=== PATIENT | male | born 1945 | race Caucasian/White ===

== ENCOUNTER → 2016-05-09 | Outpatient (CLI) | payer OTHER ==
[~2016-05-09] MED LIST: LIDOCAINE 1% 30 ML SDV ONE; NA BICARBONATE 50 MEQ/50 ML VIAL ONE
== END ==
LOC: FIMAGING 08:44
PROVIDERS: ATTEND Internal Medicine Pulmonary Disease
PROC: 0W9B3ZX Drainage of Left Pleural Cavity, Percutaneous Approach, Diagnostic (ICD-10-PCS; principal; 2016-05-09)
DX: J90 Pleural effusion, not elsewhere classified (principal); Z77.090 Contact with and (suspected) exposure to asbestos

== ENCOUNTER 2018-01-16 13:50 | Inpatient (IN) | payer OTHER ==
[2018-01-16] MEDS ORDERED: fentaNYL 100 MCG/2 ML INJ IVP ONE (15:48)
[2018-01-16] MEDS ORDERED: ONDANSETRON 4 MG/2 ML VIAL IVP ONE (15:48)
[2018-01-16] MEDS ORDERED: NS 1,000 ML IV ONE (15:48)
[2018-01-16 15:59] LABS: PLATELET COUNT 195 10^3/uL (150-400)
--- NOTE | 2018-01-16 16:17 | EDPHY ---
H & P Time Seen by Provider: 01/16/18 16:09 HPI/ROS: HPI Right-sided flank pain. 72-year-old male by private vehicle with his . This patient has a history of kidney stones. He presents to the emergency department with right-sided flank pain with radiation to the right lower quadrant of his abdomen, worsening since this morning. He states that this pain is similar to prior pain he has had with his kidney stones. He denies any testicular pain. He has had associated nausea but no vomiting. He was given IV fentanyl in triage and is feeling better at this time. ROS: Constitutional: No fever, no chills. No weakness. Eyes: No discharge. No changes in vision. ENT: No sore throat. No nasal congestion or rhinorrhea. Respiratory: No cough. No shortness of breath. Cardiac: No chest pain, no palpitations. Gastrointestinal: As above, no vomiting, no diarrhea. Genitourinary: No hematuria. No dysuria or increased frequency with urination. Musculoskeletal: As above. No neck pain. No myalgias or arthralgias. Skin: No rashes. Neurological: No headache. No focal weakness or altered sensation. Past medical history: Kidney stones, CHF, right shoulder surgery, right knee surgery. Social history: Nonsmoker. Here with his . Denies alcohol Physical Exam: General Appearance: Alert, no distress, currently he is comfortable after receiving IV fentanyl from triage. This patient is responding to questions appropriately and in full sentences. This patient appears well-hydrated and well-nourished. Eyes: Pupils are small, equal and round no pallor or injection. No lid edema, erythema or injection. Respiratory: There are no retractions, lungs are clear to auscultation with good air movement bilaterally. Cardiovascular: Regular rate and rhythm. No murmur. Gastrointestinal: Abdomen is distended, otherwise soft with vague and mild tenderness on palpation of the right lower quadrant, no masses, bowel sounds normal. No focal tenderness at McBurney's point. No Manzano sign. Neurological: Motor sensory function is grossly intact. Cranial nerves are normal. Gait is normal. Skin: Warm and dry, no rashes. Musculoskeletal: Vague and mild right-sided CVA tenderness on palpation. No left-sided CVA tenderness on palpation. Extremities are symmetrical. All joints range without pain or impingement. Psychiatric: No agitation. No depression. Database: EKG: Imaging: CT scan of abdomen and pelvis without contrast: Significant for a 3 mm mid right ureteral stone at the L4 level. Mild hydronephrosis is noted. Bilateral small a kidney stones noted. Results discussed with staff radiologist Dr. Emmanuel Sanches. Procedures: Emergency department course: Triage vital signs reviewed, mild hypertension, otherwise normal. The patient is afebrile. IV was placed in triage. He was started on IV normal saline with 500 cc to 1 L to be given over an hour. He was given 50 mcg of IV fentanyl and 4 mg of IV Zofran in triage. Currently after my evaluation he is comfortable. CT imaging pending. 5:35 p.m., the patient was re-evaluated. His pain is currently well controlled. Results of his CT scan and diagnosis discussed with him and his . I discussed my concern about his elevated creatinine which is 1.6 today. His last creatinine was 0.9. I explained that I wanted to admit him to the hospital for IV hydration, urology consultation and pain control and have his creatinine rechecked again in the morning. I also explained that we would be able to given pain medication IV. The patient and his for not sure if they want to be admitted at this time. From my understanding this has to do with insurance reasons. They are going to talk about it and let me know what they wish to do. In my professional opinion they do understand the seriousness of his condition and the potential adverse impact on his kidneys. 6:00 p.m., the patient was re-evaluated. He and his non to do except admission. Hospitalist paged. 6:15 p.m., discussed case with on-call hospitalist Dr. Fan. He accepts this patient for admission. Urology consultation deferred to hospitalist service. The patient's remaining emergency department course under my care has been uneventful. He was admitted in stable condition to the hospitalist service. Differential Diagnosis: The differential diagnosis on this patient includes but is not limited to kidney stone on right side. Aortic dissection, colitis, appendicitis unlikely. This represents a partial list of diagnoses considered. These considerations are based on history, physical exam, past history, reassessment and diagnostic testing. Smoking Status: Former smoker Constitutional: Initial Vital Signs Temperature (C) 36.9 C 12/01/18 14:05 Heart Rate 76 01/16/18 14:05 Respiratory Rate 18 01/16/18 14:05 Blood Pressure 141/87 H 01/16/18 14:05 O2 Sat (%) 95 01/16/18 14:05 O2 Delivery Mode Simple Mask O2 (L/minute) 8 Allergies/Adverse Reactions: No Known Allergies Allergy (Verified 01/16/18 14:04) Home Medications: Medication Instructions Recorded [place]-3 Fatty Acids [Fish Oil 1000 1,000 mg PO DAILY 10/31/15 mg (*)] Tamsulosin HCl [Flomax 0.4 MG (*)] 0.4 mg PO HS 10/31/15 traZODone [traZODONE 100MG (*)] 100 mg PO HS 10/31/15 Herbals/Supplements -Info Only 1 ea PO DAILY 01/24/16 Naproxen Sodium [Aleve 220 MG (*)] 220 mg PO TID #0 10/16/17 Aspirin [Aspirin 81mg (*)] 81 mg PO DAILY 01/16/18 Sennosides [Senna Lax] 8.6 mg PO HS 01/16/18 amLODIPine BESYLATE [Norvasc 2.5 5 mg PO DAILY@1700 01/16/18 mg (*)] Medical Decision Making - Diagnostics Imaging Results: Imaging Impressions Fluoroscopy 01/17/18 12:30 Impression: Fluoroscopy provided for deployment of right internalized ureteral stent. - Data Points Laboratory Results: Laboratory Results 01/16/18 15:50 01/17/18 05:12 01/17/18 05:12 Sodium 142 mEq/L mEq/L (135-145) Potassium 4.2 mEq/L mEq/L (3.3-5.0) Chloride 112 mEq/L H mEq/L (97-110) Carbon Dioxide 23 mEq/l mEq/l (22-31) Anion Gap 7 mEq/L mEq/L (6-14) BUN 23 mg/dL mg/dL (7-23) Creatinine 1.8 mg/dL H mg/dL (0.7-1.3) Estimated GFR 37 Glucose 106 mg/dL H mg/dL (70-100) Calcium 8.9 mg/dL mg/dL (8.5-10.4) Medications Given: Amlodipine Besylate (Norvasc) 5 mg PO DAILY@1700 SIL Stop: 07/16/18 16:59 Last Admin: 01/17/18 17:04 Dose: 5 mg Aspirin (Aspirin) 81 mg PO DAILY SIL Stop: 07/16/18 08:59 Last Admin: 01/17/18 09:37 Dose: 81 mg Hydromorphone HCl (Dilaudid) 0.4 mg IVP Q1 PRN PRN Reason: Pain, Severe Unable to Take PO Stop: 01/26/18 20:31 Last Admin: 01/16/18 22:31 Dose: 0.4 mg Sodium Chloride (Ns) 1,000 mls @ 150 mls/hr IV CONT SIL Stop: 07/15/18 19:29 Last Admin: 01/17/18 03:06 Dose: 1,000 mls Oxycodone HCl (Oxycodone Ir) 5 - 10 mg PO Q3HRS PRN PRN Reason: Pain, breakthrough Stop: 01/26/18 19:18 Last Admin: 01/17/18 17:03 Dose: 10 mg Tamsulosin HCl (Flomax) 0.4 mg PO BID SIL Stop: 07/15/18 20:59 Last Admin: 01/17/18 09:37 Dose: 0.4 mg Trazodone HCl (Trazodone) 100 mg PO HS SIL Stop: 07/15/18 20:59 Last Admin: 01/16/18 23:48 Dose: 100 mg Discontinued Medications Fentanyl (Sublimaze) 50 mcg IVP EDNOW ONE Stop: 01/16/18 15:49 Last Admin: 01/16/18 15:56 Dose: 50 mcg Hydromorphone HCl (Dilaudid) 0.5 mg IVP EDNOW ONE Stop: 01/16/18 16:55 Last Admin: 01/16/18 16:57 Dose: 0.5 mg Hydromorphone HCl (Dilaudid) 0.4 mg IVP Q4HRS PRN PRN Reason: Pain, Severe Unable to Take PO Stop: 01/26/18 20:31 Last Admin: 01/16/18 20:49 Dose: 0.4 mg Sodium Chloride (Ns) 1,000 mls @ 0 mls/hr IV ONCE ONE; Wide Open PRN Reason: Protocol Stop: 01/16/18 15:49 Last Admin: 01/16/18 15:56 Dose: 1,000 mls Cefazolin Sodium 2 gm/ Sodium (Chloride) 100 mls @ 200 mls/hr IV EDNOW ONE PRN Reason: Protocol Stop: 01/17/18 13:44 Last Admin: 01/17/18 13:42 Dose: 100 mls Iopamidol (Isovue-[id number]) Confirm Administered Dose 150 ml .ROUTE .STK-MED ONE Stop: 01/17/18 13:33 Last Admin: 01/17/18 14:19 Dose: Not Given Ondansetron HCl (Zofran) 4 mg IVP EDNOW ONE Stop: 01/16/18 15:49 Last Admin: 01/16/18 15:56 Dose: 4 mg Tamsulosin HCl (Flomax) 0.4 mg PO EDNOW ONE Stop: 01/16/18 17:27 Last Admin: 01/16/18 17:40 Dose: 0.4 mg Departure - Departure Disposition: [facility] Acute Clinical Impression: Kidney stone on right side, Renal insufficiency
[2018-01-16] MEDS ORDERED: HYDROmorphONE/DILAUDID 1 MG/ML INJ IVP ONE (16:54)
[2018-01-16] MEDS ORDERED: HYDROmorphONE/DILAUDID 1 MG/ML INJ ONE (16:56)
[2018-01-16] MEDS ORDERED: TAMSULOSIN HCL 0.4 MG CAP PO ONE (17:26)
[2018-01-16] MEDS ORDERED: OXYCODONE/APAP 5/325 TAB PO PRN (19:19)
[2018-01-16] MEDS ORDERED: ACETAMINOPHEN 325 MG TAB PO PRN (19:19)
[2018-01-16] MEDS ORDERED: ONDANSETRON DISINTEGRATING 4 MG TAB PO PRN (19:19)
[2018-01-16] MEDS ORDERED: ONDANSETRON 4 MG/2 ML VIAL IVP PRN (19:19)
--- NOTE | 2018-01-16 20:31 | GHP ---
DATE OF ADMISSION: 01/16/2018 CHIEF COMPLAINT: Right flank pain. HISTORY OF PRESENT ILLNESS: This is a 72-year-old male with a history of previous kidney stones. He was in his usual state of health until yesterday, when he developed some right flank pain radiating to the groin. This is similar to previous kidney stones. He did have an episode of hematuria a coup le weeks ago. He is not having any fevers or chills. No nausea, vomiting. REVIEW OF SYSTEMS: A 10-point review of systems was obtained and other than stated negative. PAST MEDICAL HISTORY: 1. Previous nephrolithiasis. 2. Obstructive sleep apnea. 3. Gout. 4. 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 MEDICATIONS: Reviewed. SOCIAL HISTORY: No smoking. Occasional alcohol. FAMILY HISTORY: There is history of kidney stones. PHYSICAL EXAMINATION: VITAL SIGNS: Afebrile. Blood pressure is 139/82, heart rate 56, oxygen satur ation 97% on 2 L. GENERAL: Patient is well developed, in no apparent distress. HEENT: Nonicteric sclerae. Extraocular movements intact. Moist mucous membranes. NECK: Supple. No thyromegaly. EDY NGS: Good effort. Clear to auscultation bilaterally. CARDIOVASCULAR: Regular rate and rhythm. No murmurs, rubs, or gallops. ABDOMEN: Obese, soft, nontender, nondistended. No hepatosplenomegaly. EXTREMITIES: No clubbing, cyanosis, or edema. BACK: No CVA tenderness. LABS: White blood cell count slightly elevated at 10. Creatinine elevated at 1.6. CT scan shows a 3 mm mid right ureteral calculus with mild hydronephrosis on the right and bilateral nephrolithiasis. ASSESSMENT: This is a 72-year-old male presenting with nephrolithiasis and acute renal failure. PLAN: 1. Nephrolithiasis. This should pass on its own. Will continue Flomax. 2. Acute renal failure. There is only mild hydronephrosis. It is probably related to dehydration. Will give IV fluids and monitor creatinine. 3. Disposition. Could probably go home tomorrow if his creatinine is improved and his pain is well controlled. /[id number]/MODL
[2018-01-16] MEDS ORDERED: HYDROmorphONE/DILAUDID 1 MG/ML INJ IVP PRN ×2 (20:32→22:19)
[2018-01-16] MEDS: oxyCODONE IR 5 MG TAB PO PRN ×2 (20:49→23:48)
[2018-01-16] MEDS: NS 1,000 ML IV SCH (20:52)
[2018-01-16] MEDS: traZODone 100 MG TAB PO SCH (23:48)
[2018-01-17] MEDS: TAMSULOSIN HCL 0.4 MG CAP PO SCH ×3 (00:34→20:03)
[2018-01-17] MEDS: oxyCODONE IR 5 MG TAB PO PRN ×4 (03:05→17:03)
[2018-01-17] MEDS: NS 1,000 ML IV SCH (03:06)
[2018-01-17] MEDS: ASPIRIN 81 MG CHEWABLE TAB PO SCH (09:37)
[2018-01-17] MEDS ORDERED: CEFAZOLIN 2 GM/DEXTROSE/100 ML BAG IV ONE (12:54)
--- NOTE | 2018-01-17 12:55 | HOSPPROG ---
Hospitalist Progress Note Assessment/Plan: Nephrolithiasis - Presents with R sided flank pain, hx of Nephrolithiasis requiring urological intervention previously - CT scan shows 3 mm mid R ureteral calculus with mild hydronephrosis on the R and b/l Nephrolithiasis - UA negative for infection on admission, +1 Blood - Cr elevated to 1.6 on admission, 1.8 this AM despite IVF - Urology consulted for further evaluation and management, discussed with Dr. Suarez this AM who plans to remove stone this afternoon - Pain/nausea control PRN - Continue IVF, Flomax ALLEN - Cr elevated to 1.6 on admission, 1.8 this AM despite IVF (baseline ~1) - Management of Nephrolithiasis as above - Continue to monitor BMP, I/O, avoid nephrotoxic agents - Continue IVF FEN: IVF Code: FULL Dispo: Pending clinical course Subjective: Patient reports increasing R flank pain this morning Objective: Vital Signs Temp Pulse Resp BP Pulse Ox 36.6 C 61 14 131/70 H 96 01/17/18 12:33 01/17/18 12:33 01/17/18 12:33 01/17/18 12:33 01/17/18 12:33 Laboratory Results 01/17/18 05:12 01/16/18 01/17/18 01/18/18 05:59 05:59 05:59 Intake Total 3111 Output Total 250 275 Balance 2861 -275 - Physical Exam Constitutional: uncomfortable Eyes: PERRL Ears, Nose, Mouth, Throat: moist mucous membranes Cardiovascular: regular rate and rhythym Respiratory: no respiratory distress Gastrointestinal: soft, non-tender abdomen Genitourinary: no bladder tenderness Skin: warm Musculoskeletal: full muscle strength Neurologic: AAOx3 Psychiatric: interacting appropriately ICD10 Worksheet Patient Problems: Problems Problem Status Onset Kidney stone on right side Acute Renal insufficiency Acute Primary localized osteoarthritis of right knee Acute
[2018-01-17] MEDS ORDERED: ceFAZolin 2 GM in NS 100 ML IV ONE (13:15)
[2018-01-17] MEDS ORDERED: ALBUTEROL 3 ML DEYVIAL IH PRN (13:18)
[2018-01-17] MEDS ORDERED: HYDROCODONE/APAP 5/325 TAB PO PRN (13:18)
[2018-01-17] MEDS ORDERED: HYDROmorphONE/DILAUDID 2 MG/ML INJ IVP PRN (13:18)
[2018-01-17] MEDS ORDERED: DEXAMETHASONE 4 MG/ML VIAL IVP PRN (13:18)
[2018-01-17] MEDS ORDERED: NS 500 ML IV PRN (13:18)
[2018-01-17] MEDS ORDERED: fentaNYL 100 MCG/2 ML INJ IVP PRN (13:18)
[2018-01-17] MEDS ORDERED: ONDANSETRON 4 MG/2 ML VIAL IVP PRN (13:18)
[2018-01-17] MEDS ORDERED: oxyCODONE IR 5 MG TAB PO PRN (13:18)
[2018-01-17] MEDS ORDERED: NALOXONE HCL 0.4 MG/ML INJ IVP PRN (13:18)
--- NOTE | 2018-01-17 13:18 | PDANEPAE ---
ANE History of Present Illness here for ureteroscopy ANE Past Medical History - Cardiovascular History Hx Hypertension: No Hx Arrhythmias: No Hx Chest Pain: No Hx Coronary Artery / Peripheral Vascular Disease: No Hx CHF / Valvular Disease: No Hx Palpitations: No Cardiovascular History Comment: PREV RX FOR HTN NO RX SINCE 2013 - Pulmonary History Hx COPD: No Hx Asthma/Reactive Airway Disease: No Hx Recent Upper Respiratory Infection: No Hx Oxygen in Use at Home: No Hx Sleep Apnea: Yes Sleep Apnea Screening Result - Last Documented: Positive Pulmonary History Comment: TIERA -C-PAP INSTRUCTED TO BRING WITH DOS. PNEUMONIA. PULM FIBROSIS. PULMONARY MD [facility] - Neurologic History Hx Cerebrovascular Accident: No Hx Seizures: No Hx Dementia: No - Endocrine History Hx Diabetes: No - Renal History Hx Renal Disorders: Yes Renal History Comment: NOCTURIA - Liver History Hx Hepatic Disorders: No - Neurological & Psychiatric Hx Hx Neurological and Psychiatric Disorders: No - Cancer History Hx Cancer: No - Congenital Disorder History Hx Congenital Disorders: No - GI History Hx Gastrointestinal Disorders: No - Other Health History Other Health History: LOWER BACK DISCOMFORT INTERMITTENT KAREN. OSTEOARTHRITIS. FULL DENTURES - Chronic Pain History Chronic Pain: Yes (RT SHLDR) - Surgical History Prior Surgeries: RT TOTAL KNEE 01/2016. REFLUX VALVE NONE EXISTENT RECONSTRUCTED . RT KNEE SCOPE. SEPTOPLASTY. RT ANKLE RECONSTRUCTION. TONSILLECTOMY ANE Review of Systems Review of systems is: negative Review of Systems: - Exercise capacity Exercise capacity: >=4 METS ANE Patient History - Allergies Allergies/Adverse Reactions: No Known Allergies Allergy (Verified 01/16/18 14:04) - Home Medications Home medications: home medication list seen and reviewed Home Medications: [place]-3 Fatty Acids [Fish Oil 1000 mg (*)] 1,000 mg PO DAILY 10/31/15 [Last Taken 01/16/18] Tamsulosin HCl [Flomax 0.4 MG (*)] 0.4 mg PO HS 10/31/15 [Last Taken 01/15/18] traZODone [traZODONE 100MG (*)] 100 mg PO HS 10/31/15 [Last Taken 01/15/18] Herbals/Supplements -Info Only 1 ea PO DAILY 01/24/16 [Last Taken 1 Week Ago ~] Naproxen Sodium [Aleve 220 MG (*)] 220 mg PO TID #0 10/16/17 [Last Taken 08:00] Aspirin [Aspirin 81mg (*)] 81 mg PO DAILY 01/16/18 [Last Taken 01/16/18 08:00] Sennosides [Senna Lax] 8.6 mg PO HS 01/16/18 [Last Taken 01/15/18] amLODIPine BESYLATE [Norvasc 2.5 mg (*)] 5 mg PO DAILY@1700 01/16/18 [Last Taken 01/15/18] - NPO status NPO Status: no food or drink >8 hours NPO Since - Liquids (Date): 01/16/18 NPO Since - Liquids (Time): 20:00 NPO Since - Solids (Date): 01/16/18 NPO Since - Solids (Time): 20:00 - Smoking Hx Smoking Status: Former smoker ANE Labs/Vital Signs - Labs Result Diagrams: 01/16/18 15:50 01/17/18 05:12 - Vital Signs Vital Signs: reviewed preoperatively; see RN documention for details Blood Pressure: 131/70 Heart Rate: 61 Respiratory Rate: 14 O2 Sat (%): 96 Height: 185.42 cm Weight: 117.027 kg ANE Physical Exam - Airway Neck exam: FROM Mallampati Score: Class 1 - Pulmonary Pulmonary: no respiratory distress - Cardiovascular Cardiovascular: regular rate and rhythym - ASA Status ASA Status: II ANE Anesthesia Plan Anesthesia Plan: GA w LMA
--- NOTE | 2018-01-17 13:22 | PDGENHP ---
History and Physical - Chief Complaint right flank pain - History of Present Illness 72 y/o WM with h/o stones admitted with right flank pain and rising creatinine. Found to have 3mm right mid ureteral stone and non obstructing renal stones. no fevers. + hematuria earlier this week. Denies N/V. +h/o of stones with intervention in [place] in the past. History Information - Allergies/Home Medication List Allergies/Adverse Reactions: No Known Allergies Allergy (Verified 01/16/18 14:04) Home Medications: [place]-3 Fatty Acids [Fish Oil 1000 mg (*)] 1,000 mg PO DAILY 10/31/15 [Last Taken 01/16/18] Tamsulosin HCl [Flomax 0.4 MG (*)] 0.4 mg PO HS 10/31/15 [Last Taken 01/15/18] traZODone [traZODONE 100MG (*)] 100 mg PO HS 10/31/15 [Last Taken 01/15/18] Herbals/Supplements -Info Only 1 ea PO DAILY 01/24/16 [Last Taken 1 Week Ago ~] Naproxen Sodium [Aleve 220 MG (*)] 220 mg PO TID #0 10/16/17 [Last Taken 08:00] Aspirin [Aspirin 81mg (*)] 81 mg PO DAILY 01/16/18 [Last Taken 01/16/18 08:00] Sennosides [Senna Lax] 8.6 mg PO HS 01/16/18 [Last Taken 01/15/18] amLODIPine BESYLATE [Norvasc 2.5 mg (*)] 5 mg PO DAILY@1700 01/16/18 [Last Taken 01/15/18] I have personally reviewed and updated: family history, medical history, social history, surgical history - Social History Smoking Status: Former smoker Review of Systems Review of Systems: ROS: 10pt was reviewed & negative except for what was stated in HPI & below Physical Exam Physical Exam: Temp Pulse Resp BP Pulse Ox 36.6 C 61 14 131/70 H 96 01/17/18 12:33 01/17/18 13:17 01/17/18 13:17 01/17/18 13:17 01/17/18 13:17 O2 (L/minute) 2 Constitutional: no apparent distress Eyes: anicteric sclera Ears, Nose, Mouth, Throat: hearing normal Cardiovascular: regular rate and rhythym Respiratory: no respiratory distress Gastrointestinal: soft, non-tender abdomen Genitourinary: no bladder fullness Skin: warm, normal color Psychiatric: interacting appropriately Lab Data & Imaging Review 01/16/18 15:50 01/17/18 05:12 WBC 10.88 10^3/uL (3.80-9.50) H 01/16/18 15:50 RBC 5.29 10^6/uL (4.40-6.38) 01/16/18 15:50 Hgb 16.1 g/dL (13.7-17.5) 01/16/18 15:50 Hct 47.1 % (40.0-51.0) 01/16/18 15:50 MCV 89.0 fL (81.5-99.8) 01/16/18 15:50 MCH 30.4 pg (27.9-34.1) 01/16/18 15:50 MCHC 34.2 g/dL (32.4-36.7) 01/16/18 15:50 RDW 13.2 % (11.5-15.2) 01/16/18 15:50 Plt Count 195 10^3/uL (150-400) 01/16/18 15:50 MPV 9.1 fL (8.7-11.7) 01/16/18 15:50 Neut % (Auto) 75.1 % (39.3-74.2) H 01/16/18 15:50 Lymph % (Auto) 11.6 % (15.0-45.0) L 01/16/18 15:50 [place] % (Auto) 9.6 % (4.5-13.0) 01/16/18 15:50 Eos % (Auto) 2.7 % (0.6-7.6) 01/16/18 15:50 Baso % (Auto) 0.6 % (0.3-1.7) 01/16/18 15:50 Nucleat RBC Rel Count 0.0 % (0.0-0.2) 01/16/18 15:50 Absolute Neuts (auto) 8.19 10^3/uL (1.70-6.50) H 01/16/18 15:50 Absolute Lymphs (auto) 1.26 10^3/uL (1.00-3.00) 01/16/18 15:50 Absolute Monos (auto) 1.04 10^3/uL (0.30-0.80) H 01/16/18 15:50 Absolute Eos (auto) 0.29 10^3/uL (0.03-0.40) 01/16/18 15:50 Absolute Basos (auto) 0.06 10^3/uL (0.02-0.10) 01/16/18 15:50 Absolute Nucleated RBC 0.00 10^3/uL (0-0.01) 01/16/18 15:50 Immature Gran % 0.4 % (0.0-1.1) 01/16/18 15:50 Immature Gran # 0.04 10^3/uL (0.00-0.10) 01/16/18 15:50 Sodium 142 mEq/L (135-145) 01/17/18 05:12 Potassium 4.2 mEq/L (3.3-5.0) 01/17/18 05:12 Chloride 112 mEq/L (97-110) H 01/17/18 05:12 Carbon Dioxide 23 mEq/l (22-31) 01/17/18 05:12 Anion Gap 7 mEq/L (6-14) 01/17/18 05:12 BUN 23 mg/dL (7-23) 01/17/18 05:12 Creatinine 1.8 mg/dL (0.7-1.3) H 01/17/18 05:12 Estimated GFR 37 01/17/18 05:12 Glucose 106 mg/dL (70-100) H 01/17/18 05:12 Calcium 8.9 mg/dL (8.5-10.4) 01/17/18 05:12 Urine Color YELLOW 01/16/18 15:50 Urine Appearance MODERATELY TURBID 01/16/18 15:50 Urine pH 5.0 (5.0-7.5) 01/16/18 15:50 Ur Specific [place] 1.021 (1.002-1.030) 01/16/18 15:50 Urine Protein NEGATIVE (NEGATIVE) 01/16/18 15:50 Urine Ketones TRACE (NEGATIVE) H 01/16/18 15:50 Urine Blood 1+ (NEGATIVE) H 01/16/18 15:50 Urine Nitrate NEGATIVE (NEGATIVE) 01/16/18 15:50 Urine Bilirubin NEGATIVE (NEGATIVE) 01/16/18 15:50 Urine Urobilinogen NEGATIVE EU (0.2-1.0) 01/16/18 15:50 Ur Leukocyte Esterase NEGATIVE (NEGATIVE) 01/16/18 15:50 Urine RBC 5-10 /hpf (0-3) H 01/16/18 15:50 Urine WBC 1-3 /hpf (0-3) 01/16/18 15:50 Ur Epithelial Cells TRACE /lpf (NONE-1+) 01/16/18 15:50 Calcium Oxalate Crystal PRESENT /hpf (NONE-1+) 01/16/18 15:50 Urine Mucus TRACE /lpf (NONE-1+) 01/16/18 15:50 Urine Glucose NEGATIVE (NEGATIVE) 01/16/18 15:50 Assessment & Plan Assessment: ureteral stone on right side (Acute) Renal insufficiency (Acute) bilateral non obstructing renal stones Plan: Discussed options including hydration and pain control and attempt at passing. Follow creatinine vs ureteroscopy with laser and stent. He prefers the later. I extensively discussed the risks, benefits, and alternatives of surgery in detail. I explained that the stone may not be able to be removed. There can be ureteral injury. The stent can cause symptoms and must be removed. He provided informed consent.
[2018-01-17] MEDS ORDERED: IOPAMIDOL (ISOVUE-300) 150 ML BTL ONE (13:32)
[2018-01-17] MEDS ORDERED: PROPOFOL/EMULSION 500 MG/50 ML BOTTLE IV ONE (13:36)
[2018-01-17] MEDS ORDERED: fentaNYL 100 MCG/2 ML INJ ONE (13:37)
[2018-01-17] MEDS ORDERED: PHENYLEPHRINE HCL 100 MCG/ML SYR ONE (13:49)
--- NOTE | 2018-01-17 14:16 | POSTOPPROG ---
Post Op Note Date of Operation: 01/17/18 Surgeon: Giuliano Suarez Pre-op Diagnosis: right mid ureteral stones Post-op Diagnosis: same Procedure: cysto, right ureteroscopy laser and stent Findings: right proximal ureteral stone Inf/Abcess present in the surg proc area at time of surgery?: No EBL: Minimal Complications: none Specimen(s): none
--- NOTE | 2018-01-17 15:43 | POSTANESTH ---
Post Anesthetic Evaluation Cardiovascular Status: Normal, Stable Respiratory Status: Normal, Stable Level of Consciousness/Mental Status: Can Participate in Eval Pain Control: Adequate, Prn Tx Ordered Nausea/Vomiting Control: Adequate, Prn Tx Ordered Complications Possibly Related to Anesthesia: None Noted
--- NOTE | 2018-01-17 16:30 | PDMN ---
Medical Necessity Medical necessity: [facility] [place] M320 Renal colic and kidney stones: 72 yo w/ R flank pain , dx w/ R nephrolithiasis and acute renal fx. Initially obs w/ IVF and creatinine monitoring. Pt changed to IP status as creatinine increased from 1.6 to 1.8 overnight despite IV fluids, Urology consulted, urgent R cystoscopy, ureteroscopy laser and stent completed. Pt is on IV opioids for pain management , remains on IVF. Requires additional MN for monitoring and tx of above. Hx previous nephrolithiasis, TIERA, gout, arthritis. Change to IP status 01/17/18@ 1425 per MD order
--- NOTE | 2018-01-17 17:47 | ASMTCMCOM ---
CM Note CM Note Notes: Patient is 72 year old male who presented with R sided flank pain, he has history of kidney stones. Patient admitted and Right ureteroscopy laser and stent placement performed. CM spoke with RN, patient to continue monitoring overnight and pending creatinine results, and discharge home independent with no needs. CM to follow. Current D/C Plan: independent. Date Signed: 01/17/2018 05:47 PM Electronically Signed By:Dee Dee Clark
[2018-01-17] MEDS: traZODone 100 MG TAB PO SCH (20:02)
--- NOTE | 2018-01-18 00:04 | GOP ---
DATE OF OPERATION: 01/17/2018 SURGEON: Terence Suarez MD TREE SAPPER: None. PREOPERATIVE DIAGNOSIS: Right mid ureteral stone. POSTOPERATIVE DIAGNOSIS: Right mid ureteral stone. PROCEDURE PERFORMED: Cystoscopy, right ureteroscopy, laser, and stent. FINDINGS: INDICATIONS: The patient is a 72-year-old gentleman who has a history of stones, who was admitted to [facility] with right flank pain and rising creatinine. I discussed the potential t reatment options. He elected to undergo operative intervention. Prior to the procedure, I had an ex tensive discussion of risks, benefits, and alternatives with him, and he did provide informed consent . DESCRIPTION OF PROCEDURE: After informed consent was obtained, he was taken to the operating room an d was given general anesthesia. He was placed in the low lithotomy position with special attention t o padding all bony prominences. His genitals were prepped and draped in sterile fashion. Cystoscopy was performed. Patient had significant prostatic hypertrophy with enlarged median lobe. The bladde r was scanned 360 degrees. There was mild trabeculation but no tumor, stones, or other abnormalities . The guidewire was then inserted into the right ureter and coiled in the right renal pelvis. Vasquez igid ureteroscopy was performed, and in the mid to proximal ureter, a stone was identified. A 365 la ser fiber was introduced, and the stone was fragmented into dust. Ureteroscopy to the level of the r enal pelvis did not demonstrate any significant residual stone fragments. Therefore, a 4.8 x 24 cm s tent was placed in a standard fashion. Fluoroscopic confirmation of the stent placement as well as v isual confirmation was obtained. The bladder was drained. He was reversed from anesthesia and sent to recovery in stable condition. There were no noted complications, no specimens, and no recordable blood loss. Patient will follow up with me in 1-2 weeks for stent removal. /[id number]/MODL
[2018-01-18] MEDS: oxyCODONE IR 5 MG TAB PO PRN ×3 (00:08→07:23)
[2018-01-18] MEDS: NS 1,000 ML IV SCH (01:37)
[2018-01-18 04:42] LABS: PLATELET COUNT 152 10^3/uL (150-400)
[2018-01-18] MEDS: TAMSULOSIN HCL 0.4 MG CAP PO SCH (08:03)
[2018-01-18] MEDS: ASPIRIN 81 MG CHEWABLE TAB PO SCH (08:03)
[2018-01-18] MEDS ORDERED: POLYETHYLENE GLYCOL 3350 17 GM PKT PO PRN (11:35)
[2018-01-18] MEDS ORDERED: LACTULOSE 20 GM/30 ML UDCUP PO PRN (11:35)
[2018-01-18] MEDS ORDERED: BISACODYL 10 MG SUPP PR PRN (11:35)
[2018-01-18] MEDS ORDERED: MAGNESIUM HYDROXIDE 30 ML UDCUP PO PRN (11:35)
--- NOTE | 2018-01-18 12:03 | ASMTCMCOM ---
CM Note CM Note Notes: Patient plan of care reviewed in rounds. Patient likely able to dc to home independently as soon as he can have BM. No needs identified. Plan: To dc home with no needs. Date Signed: 01/18/2018 12:03 PM Electronically Signed By:Arianna Acevedo RN
[2018-01-18 12:17] VITALS: BP 130/77
--- NOTE | 2018-01-18 14:09 | PDDCSUM ---
Discharge Summary Discharge Summary: Date of Admission: 01/17/2018 Date of Discharge: 01/18/2018 Consults: GI Procedures: Cystoscopy, R ureteroscopy, laser, and stent placement by Urology Followup: PCP, Urology Hospital Course Problem List: Nephrolithiasis - Presents with R sided flank pain, hx of Nephrolithiasis requiring urological intervention previously - CT scan shows 3 mm mid R ureteral calculus with mild hydronephrosis on the R and b/l Nephrolithiasis - UA negative for infection on admission, +1 Blood - Cr elevated to 1.6 on admission, worsened to 1.8 despite IVF - Urology consulted who removed stone and placed stent, will f/u in 2 weeks for stent removal - Pain/nausea control PRN - Continue Flomax ALLEN - Cr elevated to 1.6 on admission, 1.8 despite IVF (baseline ~1), improved to 1.5 this morning - Management of Nephrolithiasis as above - Recommended repeat BMP in 1-2 weeks to ensure Cr returns to baseline Time spent on discharge was >35 minutes with >50% of time spent on patient education and counseling
--- NOTE | 2018-01-18 14:16 | ASMTLACE ---
LACE Length of stay for Answers: Less than 1 day current admission Acuity / Level of Answers: Yes Care: Did the patient have an inpatient admission? Comorbidities - select Answers: Opioid dependence all that apply / Chronic pain # of Emergency department Answers: 1-2 visits in the last 6 months Score: 8 Date Signed: 01/18/2018 02:16 PM Electronically Signed By:Arianna Acevedo RN
--- NOTE | 2018-01-18 14:18 | ASMTDCNOTE ---
Case Management Discharge Discharge Order Complete? Answers: Yes Patient to Obtain Answers: Independently Medications Transportation Arranged Answers: Family/Friends Family Notified Answers: Yes Discharge Comments Notes: Medically cleared for discharge to home. No needs identified. Date Signed: 01/18/2018 02:18 PM Electronically Signed By:Arianna Acevedo RN
[2018-01-18] MEDS ORDERED: SENNOSIDES/DOCUSATE SODIUM TAB PO SCH (21:00)
== END 2018-01-18 15:07 | disposition home or self-care (01) | DRG 660 ==
LOC: F1N 20:23 → OBSVTOIN 01-17 14:25
PROVIDERS: ADMIT Internal Medicine; ATTEND Internal Medicine
DX: N20.2 Calculus of kidney with calculus of ureter (principal); N17.9 Acute kidney failure, unspecified; E86.9 Volume depletion, unspecified; G47.33 Obstructive sleep apnea (adult) (pediatric); M10.9 Gout, unspecified; N40.1 Benign prostatic hyperplasia with lower urinary tract symptoms
CPT/HCPCS: 96374; C1758; C1769; C2625; G0378; J0690; J1170; J2370; J2405; J2704; J3010; Q9967

== ENCOUNTER → 2018-02-25 | Outpatient (CLI) | payer OTHER | LOC: BHLMT 10:30 | PROVIDERS: ATTEND Internal Medicine Cardiovascular Disease | DX: I51.9 Heart disease, unspecified (principal); R06.09 Other forms of dyspnea; I10 Essential (primary) hypertension; I44.7 Left bundle-branch block, unspecified | CPT/HCPCS: 93005-PO ==